=== PATIENT | male | born 1995 | race Caucasian/White ===

== ENCOUNTER → 2021-05-23 | Outpatient (CLI) | payer BC ==
[2021-05-24 11:30] LABS: Beef IgE <0.10 kU/L (<0.10); Beef IgE Class CLASS 0; Pork IgE Class CLASS 0; Yeast Bakers/Brew IgE <0.10 kU/L (<0.10); Yeast Bakers/Brew IgE Class CLASS 0
[2021-05-24 11:31] LABS: Chicken IgE Class CLASS 0; Chocolate IgE Class CLASS 0; Cow's Milk IgE Class CLASS 0; Egg White IgE <0.10 kU/L (<0.10); Latex IgE Class CLASS 0/1; Peanut IgE 3.35 kU/L (<0.10); Potato IgE Class CLASS 0/1; Soybean IgE 0.36 kU/L (<0.10)
[2021-05-24 11:32] LABS: Coffee IgE <0.10 kU/L (<0.10); Coffee IgE Class CLASS 0
== END | disposition home or self-care (01) ==
LOC: LABWHC1 11:09
PROVIDERS: ATTEND Otolaryngology
DX: L50.0 Allergic urticaria (principal)
CPT/HCPCS: 36415; 86003